=== PATIENT | female | born 1930 | race Caucasian/White ===

== ENCOUNTER 2016-11-23 17:25 | Emergency (ER) | payer MEDICARE ==
[~2016-11-23 17:25] MED LIST: ASP81TEC PO; HYDR25TA4 PO; LOPRESSOR25 MG PO; triamcinolone TOP
[2016-11-23 17:28] VITALS: BP 198/89; PULSE 71; RESP 16; O2SAT 96
[2016-11-23] MEDS ORDERED: MULT1CAP33 PO (18:04)
[2016-11-23] MEDS ORDERED: ASCO-294 PO (18:04)
[2016-11-23] MEDS ORDERED: POTA99TA3 PO (18:04)
[2016-11-23] MEDS ORDERED: VITA400C64 PO (18:04)
[2016-11-23] MEDS ORDERED: CRAN300T PO (18:04)
[2016-11-23] MEDS ORDERED: GINK120C PO (18:04)
[2016-11-23] MEDS ORDERED: CHOL400D9 PO (18:04)
[2016-11-23] MEDS ORDERED: LOSA25TA21 PO (18:04)
[2016-11-23] MEDS ORDERED: CALC600T12 PO (18:04)
[2016-11-23] MEDS ORDERED: OMEG500C PO (18:04)
[2016-11-23] MEDS ORDERED: B-COMPLEX (18:04)
--- NOTE | 2016-11-23 18:05 | ED.REPORT ---
HPI-Chest Pain 40 and Over Date of Service Nov 23, 2016 ED Provider: Dr. Jones Pt is an 86 y/o female w/ a hx of CHF (aortic stenosis), TAA, HTN, presenting to the ED c/o intermittent left-sided CP onset about 12 hours ago. These episodes last a very short amount of time, matter of seconds to a minute at most. She has noticed some increased dyspnea on exertion for the past week. Pt denies nausea, vomiting, SOB, diaphoresis, pleuritic pain, rash. Her pain is relieved with exertion. Public Stenographer: Dr. Adame Nursing Notes Stated Complaint: CHEST PAIN Chief Complaint: Chest Pain Nursing Notes Reviewed: Yes Allergies: Coded Allergies: Sulfa (Sulfonamide Antibiotics) (Verified Allergy, Severe, RASH, 02/24/12) Scheduled Ascorbate Calcium (Vitamin C) 500 Mg Tablet 500 MG PO DAILY Aspirin-Expunged Drug, Do Not Renew! (Aspirin EC-Expunged Drug, Do Not Renew!) 81 Mg Tablet 81 MG PO DAILY Calcium Carbonate (Calcium) 600 Mg Tablet 600 MG PO DAILY Cholecalciferol (Vitamin D3) (Vitamin D) 400 Unit/1 Ml Drops 400 UNIT PO DAILY Cranberry Extract (Cranberry) 300 Mg Tablet 300 MG PO DAILY Famotidine (Pepcid) 20 Mg Tablet 20 MG PO BID Ginkgo Biloba Extract (Ginkgo Biloba) 120 Mg Capsule 120 MG PO DAILY Hydrochlorothiazide-Expunged, Do Not Renew! (Hydrochlorothiazide-Expunged, Do Not Renew!) 25 Mg Tablet 25 MG PO DAILY Losartan Potassium (Losartan Potassium) 25 Mg Tablet 25 MG PO DAILY Multivitamin (Multivitamins) 1 Each Capsule 1 EACH PO DAILY [place]-3 Fatty Acids (Fish Oil) 500 Mg Capsule. 1,200 MG PO DAILY Potassium Gluconate (Potassium Gluconate) 99 Mg Tablet 99 MG PO DAILY Vitamin E Mixed (Vitamin E) 400 Unit Capsule 400 UNIT PO DAILY Scheduled PRN Naproxen (Naproxen) 250 Mg Tablet 250 MG PO BID PRN PRN For Pain Miscellaneous Medications ([B-Complex]) General Time Seen by MD: 18:04 Chief Complaint Chest pain Hx Obtained From: Patient Arrived By: Walk-in Sudden in Onset?: No Onset Occurred: 9 - 12 hours ago Symptom Duration: Intermittent Location: : Chest left Quality: Painful Severity: Current: No pain currently Severity: Maximum: Mild Similar Sx Previous: Yes Past Medical History Past Medical History Notes: Public Stenographer: Dr. Adame - last echo December 2015 Past Medical History TAA Aortic stenosis Mild mitral regurg CHF HTN Diverticulosis Hx basal cell facial CA Past Surgical History Cataracts s/p extraction ALLAN/BSO Smoking History Unknown if Ever Smoker Ambulatory Status Independent Review of Systems Constitutional: Denies: Chills, Fever Respiratory: Denies: Shortness of breath Cardiovascular: Reports: Chest pain, Dyspnea on exertion GI: Denies: Nausea, Vomiting Skin: Denies Diaphoresis Complete sys rev & neg: except as marked. Physical Exam Initial Vital Signs Vital Signs (First) Date Time Temp Pulse Resp B/P Pulse Ox O2 Delivery O2 Flow Rate FiO2 11/23/16 17:28 36.4 71 16 198/89 96 Room Air Initial VS: Reviewed Head / Eyes: Atraumatic, Normocephalic, PERRL ENT: Mucous membranes moist, Conjunctiva normal, No scleral icterus Neck: Supple, Full range of motion Extremities: Vascular intact, Neuro intact, No swelling, No tenderness Skin: Warm, Dry, No cyanosis Neurologic: Alert, Oriented, Nonfocal Psychiatric: Mood/affect normal, Behavior normal, Normal thought content General/Constitutional: Awake, Alert, No acute distress, Well appearing, Cooperative, Not toxic appearing Respiratory / Chest: Atraumatic, Breath sounds NL, Breath sounds = bilat, No respiratory distress, No rales, No rhonchi, No wheezing, No retractions, No stridor, No chest tenderness, No chest wall deformity, No crepitus Cardiovascular: Heart rate NL, Regular rhythm, Cap refill not delayed, Peripheral circulation NL Harsh blowing murmur more audible left lateral Abdomen: Atraumatic, Soft, Non-tender Interpretation & Diagnostics Lab Results Interpretation Result Diagram: 11/23/16 1750 11/23/16 1750 Test 11/23/16 17:50 11/23/16 20:05 White Blood Count 7.5th/mm3 (3.8-10.1) Red Blood Count 4.77mil/mm3 (3.90-5.20) Hemoglobin 14.9g/dL (12.0-15.6) Hematocrit 44.4% (35.0-46.0) Mean Corpuscular Volume 93.1fL (81-100) Mean Corpuscular Hemoglobin 31.2pg (27.0-35.0) Mean Corpuscular Hemoglobin Concent 33.6% (32.0-37.0) Red Cell Distribution Width 14.1% (12.3-15.4) Platelet Count 529bil/L (150-400) Neutrophils (%) (Auto) 58.6% (40-74) Lymphocytes (%) (Auto) 27.5% (14-46) Monocytes (%) (Auto) 8.8% (4-12) Eosinophils (%) (Auto) 4.3% (0-5) Basophils (%) (Auto) 0.7% (0-3) D-Dimer < 0.5mg/L (<0.50) Sodium Level 137mEq/L (134-144) Potassium Level 3.6mEq/L (3.5-5.2) Chloride Level 95mEq/L (97-108) Carbon Dioxide Level 30mmol/L (18-29) Blood Urea Nitrogen 17mg/dL (8-27) Creatinine 0.72mg/dL (0.57-1.00) Estimat Glomerular Filtration Rate 110mL/min (>59) Glucose Level 101mg/dL (60-99) Calcium Level 9.0mg/dL (8.5-10.1) Magnesium Level 1.9mg/dL (1.6-2.6) Total Bilirubin 0.3mg/dL (0.0-1.2) Aspartate Amino Transf (AST/SGOT) 27U/L (0-50) Alanine Aminotransferase (ALT/SGPT) 16U/L (0-32) Alkaline Phosphatase 57U/L (25-165) Pro-B-Type Natriuretic Peptide 393.0pg/mL (0-738) Total Protein 7.0g/dL (6.4-8.4) Albumin 4.0g/dL (3.4-5.0) Hold Hurt Top Tube Received (Received) Troponin T < 0.010ug/L (0.0-0.011) ECG Interpretation ECG Interpretation: Sinus rhythm rate 68 Prolonged [place] interval RBBB and LAFB Time: 18:10 Interpreted by: ED physician Normal ECG Interpretation: No acute ischemic changes ECG Interpretation: Sinus rhythm rate 67 Prolonged [place] interval RBBB and LAFB Time: 20:00 Interpreted by: ED physician Normal ECG Interpretation: No acute ischemic changes, No change from prior ECGs X-Ray Chest Interpretation Chest Xray Interpretation: IMPRESSION: No acute disease seen. Dictated by: Lucas Silva M.D. on 11/23/2016 at 19:02 Approved by: Lucas Silva M.D. on 11/23/2016 at 19:02 View: Portable, 1 view Interpretation / Wet Read by: Interpret - Radiologist Re-Eval/Medical Decision Med Decision/Clinical Course 86-year-old with known aortic stenosis and moderate aortic aneurysm presents with a brief sharp chest pain off and on for more than a day. No cardiac enzyme elevation and no change in her cardiogram. No elevation of d-dimer. No other focal findings. X-rays unremarkable. She has a very noncardiac, pleuritic and positional pain. It is somewhat relieved after some ketorolac here. Home with low-dose Naprosyn and Pepcid. Follow up with PCP. Time of Eval: 19:55 Patient Status: Mild relief, Pain improved Re-Evaluation/Progress Note: Pt rechecked. Pain improved. Discussed negative lab and imaging results so far. Informed pt of need for serial troponin. Time of Eval: 21:08 Re-Evaluation/Progress Note: Pt rechecked. Informed pt of negative lab results. Informed pt of plan for treatment. Pt understands and agrees with plan for treatment. F/U instructions and RTER warnings given. All questions addressed. Counseled Regarding: Diagnosis, Lab results, Need for follow-up, When/why to return to ED Discharge & Departure Primary Impression: Non-cardiac chest pain Disposition: Home Discharge Condition All VS Reviewed: Yes Condition: Stable Patient Instructions: Chest Pain (ED) Additional Instructions: The character of this chest pain is not cardiac. The rapid onset offset is more suggestive of musculoskeletal pain, or perhaps esophageal pain. Begin Pepcid twice daily. Begin Naprosyn twice daily. Follow-up with your doctor in the office. Return if any immediate issues. Referrals: Zack Hunt MD (PCP) Scribe Attestation Portions of this note were transcribed by Darius Singh. I, Dr. Jones personally performed the history, physical exam and medical decision-making; I reviewed and confirmed the accuracy of the information in the transcribed note. Signed by Mic Gaytan, 11/23/16 - 1900 copies to: Zack Hunt MD, Christopher W MD Nov 23, 2016 18:04 DARIUS SINGH Nov 23, 2016 18:17
[2016-11-23 18:14] LABS: BASOPHILS % (AUTO) 0.7 % (0-3); EOSINOPHILS % (AUTO) 4.3 % (0-5); MONOCYTES % (AUTO) 8.8 % (4-12); Mean Corpuscular Hemoglobin 31.2 pg (27.0-35.0); Mean Corpuscular Volume 93.1 fL (81-100); NEUTROPHILS % (AUTO) 58.6 % (40-74); Platelet Count 529 bil/L (150-400)
[2016-11-23 18:43] LABS: Magnesium 1.9 mg/dL (1.6-2.6); TROPONIN T < 0.010 ug/L (0.0-0.011)
--- NOTE | 2016-11-23 19:04 | DRSVH ---
PROCEDURE: X-RAY CHEST ONE VIEW, PORTABLE ([id number]) INDICATIONS: chest pain TECHNIQUE: One view of the chest was acquired. COMPARISON: None. FINDINGS: Surgical changes and devices: general partner leads. Lungs and pleura: No pleural effusions or pneumothorax. Lungs are clear. Mediastinum: Mediastinal contours appear normal. Heart size is normal. Bones and chest wall: No suspicious bony lesions. Overlying soft tissues appear unremarkable. IMPRESSION: No acute disease seen. Dictated by: Lucas Silva M.D. on 11/23/2016 at 19:02 Approved by: Lucas Silva M.D. on 11/23/2016 at 19:02
[2016-11-23] MEDS ORDERED: Pantoprazole 4 mg/mL 10 mL Inj IVPUSH ONE (19:45)
[2016-11-23] MEDS ORDERED: FAMO20T PO (21:15)
[2016-11-23] MEDS ORDERED: NAPR250T PO (21:15)
[2016-11-23 21:27] VITALS: BP 143/69; PULSE 68; RESP 15; O2SAT 96
== END 2016-11-23 21:28 | disposition home or self-care (01) ==
LOC: SED 17:25
DX: R07.89 Other chest pain (principal); R06.09 Other forms of dyspnea; I35.0 Nonrheumatic aortic (valve) stenosis; I50.9 Heart failure, unspecified; I71.2 Thoracic aortic aneurysm, without rupture; I10 Essential (primary) hypertension; Z79.82 Long term (current) use of aspirin; Z88.2 Allergy status to sulfonamides